=== PATIENT | male | born 1985 | race Caucasian/White ===

== ENCOUNTER → 2019-08-31 | Outpatient (CLI) | payer BC | END | disposition home or self-care (01) | LOC: LAB SHORT 11:48 → LAB 11:48 | DX: Z30.9 Encounter for contraceptive management, unspecified (principal) ==

== ENCOUNTER 2022-05-08 21:00 | Emergency (ER) | payer OTHER, BC ==
[~2022-05-08] VITALS: Ht 182.9 cm; Wt 102.1 kg
[2022-05-08] MEDS ORDERED: PROP10 (21:23)
[2022-05-08] MEDS ORDERED: CYCL10 PO (22:14)
== END 2022-05-08 22:34 | disposition home or self-care (01) ==
LOC: ER 21:00
DX: R51.9 Headache, unspecified (principal); M25.511 Pain in right shoulder; V59.40XA Driver of pick-up truck or van injured in collision with unspecified motor vehicles in traffic accident, initial encounter; Z88.8 Allergy status to other drugs, medicaments and biological substances
CPT/HCPCS: 99283; A9270